=== PATIENT | male | born 1995 | race Caucasian/White ===

== ENCOUNTER 2016-11-05 12:17 | Inpatient (IN) | payer OTHER ==
[~2016-11-05] VITALS: Ht 180.3 cm; Wt 92.7 kg
[2016-11-05] VITALS (7 sets, daily range): BP systolic 104–126; BP diastolic 54–73; PULSE 52–77; TEMP 36.6–37.1; O2SAT 95–99; Ht 180.3 cm; Wt 92.7 kg
[2016-11-05] MEDS ORDERED: SODIUM CHLORIDE 0.9% 1000ML 1,000 ML IV STA (13:06)
[2016-11-05] MEDS ORDERED: MoRPHine SULFATE 4 MG/ML 1 ML CARP\\VIAL IV STA (13:06)
[2016-11-05] MEDS ORDERED: ONDANSETRON INJ 2 MG/ML 2 ML VIAL IV STA (13:06)
[2016-11-05 13:12] LABS: BASO % 0.2 %; BASO ABS # 0.02 K/uL (0-0.2); COMPLETE YES; HEMATOCRIT 43.1 % (42-52); IG% 0.3 %; LYMPH % 6.7 %; LYMPH ABS # 0.79 K/uL (1.2-3.4); MEAN CELL VOLUME 88.9 fL (80-100); MEAN CORPUSCULAR HEMOGLOBIN 30.5 pg (25-34); MEAN CORPUSCULAR HGB CONC 34.3 g/dl (32-36); MEAN PLATELET VOLUME 9.6 fL (7.4-10.4); MONO % 5.9 %; NEUT % 85.9 %; PLATELET COUNT 186 K/uL (130-400); RED BLOOD COUNT 4.85 M/uL (4.7-6.1); WHITE BLOOD COUNT 11.81 K/uL (4.8-10.8)
[2016-11-05] MEDS ORDERED: OPTIRAY 320 IV PRN (13:15)
[2016-11-05 13:20] LABS: BUN/CREATININE RATIO 13.5 (10-20); CALCIUM 9.1 mg/dl (8.5-10.1); CREATININE 1.2 mg/dl (0.60-1.40); POTASSIUM 4.2 mmol/L (3.5-5.1)
--- NOTE | 2016-11-05 14:05 | DIAGNOSTIC IMAGING REPORT ---
CT OF THE ABDOMEN AND PELVIS WITH CONTRAST CLINICAL HISTORY: Worsening right sided abdominal pain, nausea and vomiting. COMPARISON STUDY: None. TECHNIQUE: Following IV administration of 119 mL of Optiray-320, axial images of the abdomen and pelvis were obtained from the lung bases to the proximal femurs. Images were reviewed in the axial, sagittal, and coronal planes. IV contrast was administered without complication. CT DOSE: 506.19 mGy.cm FINDINGS: The liver, spleen, adrenal glands, kidneys and pancreas are normal. There is no evidence for a bowel obstruction. The appendix is dilated, measuring 1 cm in caliber. The wall is thickened and enhancing. There is moderate periappendiceal infiltration. No free air or abscess is identified. A small amount of nonloculated fluid within the pelvis is noted. No suspicious skeletal lesions are identified. There is old deformity of the lesser trochanter of the left femur and the left inferior pubic ramus. IMPRESSION: 1. Acute appendicitis. Moderate periappendiceal infiltration. Retrocecal appendix. No free air or abscess. 2. Small amount of fluid within the pelvis. Electronically signed by: Jorge Yanez M.D. 11/05/2016 2:03 PM Dictated Date/Time: 11/05/2016 2:01 PM
[2016-11-05] MEDS ORDERED: CEFOXITIN SOD 2 GM VIAL IV STA ×2 (14:38→14:54)
[2016-11-05] MEDS ORDERED: LACTATED RINGER'S 1000ML 1,000 ML IV SCH (15:00)
--- NOTE | 2016-11-05 15:02 | History & Physical Bridge Note ---
H&P Re-Evaluation Bridge Note: I have examined the patient, reviewed the History & Physical and in the interval since the performance of the History & Physical I have noted the following changes of clinical significance: No changes noted h and p dictated confirmation number [id number] dx acute appendicitis proceed with lap appy possible open
--- NOTE | 2016-11-05 15:11 | HISTORY & PHYSICAL EXAMINATION ---
DATE OF ADMISSION: 11/05/2016 Seen in the Emergency Room at 2:50 on 11/05/2016. SUMMARY: This is a 21-year-old gentleman that I was called by Dr. Mooney just approximately a half hour ago with findings of acute appendicitis. He said the pain started early this morning woke up with his lower abdominal pain was nauseated and the pain progressed to the point that it was fixed in right lower quadrant. He has never had pain like this before. He does state that both his parents had appendix out, and in fact I spoke with both the mother and father after examining him. PAST MEDICAL HISTORY: Pretty much unremarkable. 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 ALLERGIES: He has no known allergies. PAST SURGICAL HISTORY: He denies any previous surgery. REVIEW OF SYSTEMS: A 10 has been reviewed and completely unremarkable. PHYSICAL EXAMINATION: GENERAL: As I see him at this time showed the gentleman in no acute distress. He has a heavy [place]. VITAL SIGNS: His temperature is 36.7, his pulse is 56, respirations 16, blood pressure 133/44, O2 sats 99% on room air. HEENT: The head is normocephalic. Eyes: PERRLA. The sclerae is nonicteric. NECK: No cervical lymphadenopathy. Heart: Normal. LUNGS: Clear. ABDOMEN: Has significant tenderness and rebound in right lower quadrant. LABORATORY STUDIES: He has a white count of 11.81 with a left shift. Chemistries are acceptable. His creatinine is slightly elevated at 1.2. IMAGING: By CAT scan is compatible with a retrocecal acute appendicitis with moderate periappendiceal infiltration. ASSESSMENT AND PLAN: At this point, we will proceed with laparoscopic appendectomy, possible open. Risks and complications were explained including bleeding, infection, conversion to an open procedure and he would like to proceed accordingly. ADRIAN
--- NOTE | 2016-11-05 15:13 | EMERGENCY ROOM VISIT NOTE ---
History Report prepared by Negar: Sheree Marcano Under the Supervision of: Dr. Rosario Mooney M.D. First contact with patient: 12:29 Chief Complaint: ABDOMINAL PAIN Stated Complaint: ABD PAIN, NAUSEA, VOMITING, FEVER Nursing Triage Summary: last hoa morris stomach upset worse today pain mid abd History of Present Illness The patient is a 21 year old male who presents to the Emergency Room with complaints of worsening abdominal pain starting 0700 this morning. He woke up with severe pain in his upper abdomen. He took Pepto Bismol to no relief. The pain has been gradually worsening and concentrated more on the right side. He reports nausea, vomiting, and diarrhea. He has vomited 3 times. He denies any bloody stools or fever. He has no history of abdominal surgery or other medical problems. He denies eating any new foods last night. Source of History: patient Onset: 0700 this morning Position: abdomen Symptom Intensity: severe Quality: other (pain) Timing: worsening Associated Symptoms: + diarrhea, + nausea, + vomiting, No fevers, No hematochezia Review of Systems See HPI for pertinent positives & negatives. A total of 10 systems reviewed and were otherwise negative. Past Medical & Surgical Medical Problems: (1) No Known Active Medical Problems Family History No pertinent family history stated. Social History Smoking Status: Current Some Day Smoker Marital Status: single Occupation Status: [employer] student Current/Historical Medications Scheduled PRN Oxycodone/Acetaminophen 5MG/325MG (Percocet 5MG/325MG), 1-2 TABLETS PO Q4H PRN for Pain Allergies Coded Allergies: No Known Allergies (Unverified , 11/05/16) Physical Exam Vital Signs Date Time Temp Pulse Resp B/P Pulse Ox O2 Delivery O2 Flow Rate FiO2 11/05/16 15:34 64 16 130/50 99 11/05/16 15:30 36.7 56 16 135/44 99 Room Air 11/05/16 15:00 99 Room Air 11/05/16 13:56 56 16 135/44 99 Room Air 11/05/16 12:19 36.7 76 20 124/70 97 Room Air Physical Exam Vital signs reviewed. General: Well-appearing, in no significant distress. HEENT: No scleral icterus, PERRLA, neck supple. Atraumatic. Cardiovascular: Regular rate and rhythm, no extra sounds. Pulmonary: Clear to auscultation bilaterally, normal work of breathing. Abdomen: Soft, tenderness to palpation of the RLQ, some guarding, no rebound, nondistended, positive bowel sounds. Musculoskeletal: Atraumatic, no peripheral edema. Neurologic: Patient awake alert and oriented x 3, full strength in all 4 extremities. Cranial nerves 2 through 12 grossly intact. Skin: Warm, dry, no rash Medical Decision & Procedures ER Provider Diagnostic Interpretation: Radiology results as stated below per my review and radiologist interpretation: CT OF THE ABDOMEN AND PELVIS WITH CONTRAST CLINICAL HISTORY: Worsening right sided abdominal pain, nausea and vomiting. COMPARISON STUDY: None. TECHNIQUE: Following IV administration of 119 mL of Optiray-320, axial images of the abdomen and pelvis were obtained from the lung bases to the proximal femurs. Images were reviewed in the axial, sagittal, and coronal planes. IV contrast was administered without complication. CT DOSE: 506.19 mGy.cm FINDINGS: The liver, spleen, adrenal glands, kidneys and pancreas are normal. There is no evidence for a bowel obstruction. The appendix is dilated, measuring 1 cm in caliber. The wall is thickened and enhancing. There is moderate periappendiceal infiltration. No free air or abscess is identified. A small amount of nonloculated fluid within the pelvis is noted. No suspicious skeletal lesions are identified. There is old deformity of the lesser trochanter of the left femur and the left inferior pubic ramus. IMPRESSION: 1. Acute appendicitis. Moderate periappendiceal infiltration. Retrocecal appendix. No free air or abscess. 2. Small amount of fluid within the pelvis. Electronically signed by: Jorge Yanez M.D. 11/05/2016 2:03 PM Dictated Date/Time: 11/05/2016 2:01 PM Laboratory Results 11/05/16 12:35 Red Blood Count 4.85, Mean Corpuscular Volume 88.9, Mean Corpuscular Hemoglobin 30.5, Mean Corpuscular Hemoglobin Concent 34.3, Mean Platelet Volume 9.6, Neutrophils (%) (Auto) 85.9, Lymphocytes (%) (Auto) 6.7, Monocytes (%) (Auto) 5.9, Eosinophils (%) (Auto) 1.0, Basophils (%) (Auto) 0.2, Neutrophils # (Auto) 10.15, Lymphocytes # (Auto) 0.79, Monocytes # (Auto) 0.70, Eosinophils # (Auto) 0.12, Basophils # (Auto) 0.02 11/05/16 12:35 Test 11/05/16 12:35 White Blood Count 11.81 K/uL (4.8-10.8) Red Blood Count 4.85 M/uL (4.7-6.1) Hemoglobin 14.8 g/dL (14.0-18.0) Hematocrit 43.1 % (42-52) Mean Corpuscular Volume 88.9 fL (80-100) Mean Corpuscular Hemoglobin 30.5 pg (25-34) Mean Corpuscular Hemoglobin Concent 34.3 g/dl (32-36) Platelet Count 186 K/uL (130-400) Mean Platelet Volume 9.6 fL (7.4-10.4) Neutrophils (%) (Auto) 85.9 % Lymphocytes (%) (Auto) 6.7 % Monocytes (%) (Auto) 5.9 % Eosinophils (%) (Auto) 1.0 % Basophils (%) (Auto) 0.2 % Neutrophils # (Auto) 10.15 K/uL (1.4-6.5) Lymphocytes # (Auto) 0.79 K/uL (1.2-3.4) Monocytes # (Auto) 0.70 K/uL (0.11-0.59) Eosinophils # (Auto) 0.12 K/uL (0-0.5) Basophils # (Auto) 0.02 K/uL (0-0.2) RDW Standard Deviation 42.9 fL (36.4-46.3) RDW Coefficient of Variation 13.1 % (11.5-14.5) Immature Granulocyte % (Auto) 0.3 % Immature Granulocyte # (Auto) 0.03 K/uL (0.00-0.02) Anion Gap 10.0 mmol/L (3-11) Est Creatinine Clear Calc Drug Dose 114.2 ml/min Estimated GFR () 100.3 Estimated GFR (Non- 86.5 BUN/Creatinine Ratio 13.5 (10-20) Calcium Level 9.1 mg/dl (8.5-10.1) Total Bilirubin 0.7 mg/dl (0.2-1) Direct Bilirubin 0.2 mg/dl (0-0.2) Aspartate Amino Transf (AST/SGOT) 41 U/L (15-37) Alanine Aminotransferase (ALT/SGPT) 50 U/L (12-78) Alkaline Phosphatase 71 U/L (45-117) Total Protein 7.8 gm/dl (6.4-8.2) Albumin 4.4 gm/dl (3.4-5.0) Lipase 116 U/L (73-393) Laboratory results per my review. Medications Administered Medications (Trade) Dose Ordered Sig/Joe Route Start Time Stop Time Status Last Admin Dose Admin Morphine Sulfate (MoRPHine SULFATE INJ) 4 mg NOW STAT IV 11/05/16 13:06 11/05/16 13:07 DC 11/05/16 13:11 4 MG Ondansetron HCl 4 mg 4 mg NOW STAT IV 11/05/16 13:06 11/05/16 13:07 DC 11/05/16 13:11 4 MG Sodium Chloride (Nss 1000ml) 1,000 ml @ 999 mls/hr Q1H1M STAT IV 11/05/16 13:06 11/05/16 14:06 DC 11/05/16 13:11 999 MLS/HR Cefoxitin Sodium 2000 mg 2,000 mg NOW STAT IV 11/05/16 14:38 11/05/16 14:39 DC 11/05/16 14:45 2,000 MG Lactated Ringer's (Lr 1000ml) 1,000 ml @ 125 mls/hr Q8H IV 11/05/16 15:00 11/05/16 17:15 DC 11/05/16 15:00 125 MLS/HR Lidocaine/ Epinephrine 8 ml 8 ml ONE ONCE INJ 11/05/16 16:53 11/05/16 16:54 DC 11/05/16 16:53 8 ML Lactated Ringer's (Lr 1000ml) 1,000 ml @ 100 mls/hr Q10H IV 11/05/16 17:00 11/06/16 13:46 DC 11/06/16 02:15 100 MLS/HR Hydromorphone HCl (Dilaudid Inj) 1 mg Q2H PRN IV 11/05/16 17:00 11/06/16 13:46 DC 11/05/16 18:17 1 MG Oxycodone/ Acetaminophen (Percocet 5-325mg Tab) 1 tab Q4H PRN PO 11/05/16 17:00 11/06/16 13:46 DC 11/06/16 13:44 1 TAB ED Course 1254: Past medical records reviewed. The patient was evaluated in room B12. A complete history and physical examination was performed. 1306: NSS 1000 ml @ 999 mls/hr IV, Zofran Inj 4 mg IV, Morphine Sulfate 4 mg IV. 1418: I discussed the patient's case with Dr. Dykes, [facility] [place]. He will be in to see the patient. 1438: Mefoxin IV 2000 mg IV. 1439: Upon reevaluation, the patient is resting comfortably. I discussed laboratory and radiographic results with him. He verbalized agreement of the treatment plan. The patient will be evaluated for further management and care. Medical Decision Differential diagnosis: Etiologies such as appendicitis, diverticulitis, PUD, biliary pathology, UTI, pancreatitis, obstruction, mesenteric ischemia, aortic pathology, infections, inflammatory bowel disease, renal colic, as well as others were entertained. This patient was evaluated and appeared to be in no significant distress. IV access was obtained and laboratory work was drawn. CT scan abdomen and pelvis was performed and is indicative of an acute appendicitis. The patient was discussed with Dr. Dykes of general surgery. He was ordered 2 g of Mefoxin manager oncology the OR. Patient is aware of the plan and agrees. Consults Time Called: 1415 Consulting Physician: Dr. Dykes, [facility] [place] Returned Call: [phone] I discussed the patient's case with him. He will be in to see the patient. Impression Primary Impression: Appendicitis Scribe Attestation The scribe's documentation has been prepared under my direction and personally reviewed by me in its entirety. I confirm that the note above accurately reflects all work, treatment, procedures, and medical decision making performed by me. Departure Information Dispostion Being Evaluated By Surgeon Prescriptions Oxycodone/Acetaminophen 5MG/325MG (PERCOCET 5MG/325MG) Tab 1-2 TABLETS PO Q4H Y for Pain, #20 TAB Prov: Everardo Trivedi JR.,MINDI 11/06/16 Referrals No Doctor, Assigned (PCP) Patient Instructions [facility]
[2016-11-05] MEDS ORDERED: FENTANYL CITRATE INJ 50 MCG/1 ML 2 ML VIAL ONE (15:21)
[2016-11-05] MEDS ORDERED: MIDAZOLAM HCL 1 MG/ML 2ML VIAL ONE (15:23)
[2016-11-05] MEDS ORDERED: PROPOFOL IV EMULSION 10 MG/ML 20 ML VIAL IV ONE (15:24)
[2016-11-05] MEDS ORDERED: SUCCINYLCHOLINE CHLORIDE 20 MG/ML 10 ML VIAL IV ONE (15:25)
[2016-11-05] MEDS ORDERED: CISATRACURIUM BESYLATE IV SOLN 2 MG/ML 10 ML VIAL ONE (16:29)
[2016-11-05] MEDS ORDERED: ONDANSETRON INJ 2 MG/ML 2 ML VIAL ONE (16:30)
[2016-11-05] MEDS ORDERED: DEXAMETHASONE SOD INJ 4 MG/ML VIAL ONE (16:30)
[2016-11-05] MEDS ORDERED: LIDOCAINE 1% W/EPI 1:100,000 INJ ONE (16:53)
[2016-11-05] MEDS ORDERED: GLYCOPYRROLATE INJ 0.2 MG/ML VIAL ONE (16:54)
[2016-11-05] MEDS ORDERED: NEOSTIGMINE METHYLSULFATE 5 MG/5 ML SYR ONE (16:55)
--- NOTE | 2016-11-05 16:58 | [facility] Post Operative Brief Note ---
Immediate Operative Summary Operative Date Nov 05, 2016. Pre-Operative Diagnosis Acute Appendicitis Post-Operative Diagnosis same Procedure(s) Performed Laparoscopic Appendectomy Surgeon Dr. Dykes Felt Pad Cutter Surgeon(s) none Estimated Blood Loss 3 ML Findings acute non ruptured retrocecal appendicitis Specimens A. Appendix
[2016-11-05] MEDS ORDERED: ONDANSETRON INJ 2 MG/ML 2 ML VIAL IV PRN ×2 (17:00→17:15)
[2016-11-05] MEDS ORDERED: HYDROmorphone INJ 1 MG/ML SYR IV PRN (17:00)
[2016-11-05] MEDS ORDERED: MEPERIDINE HCL 50 MG/ML CARP ONE (17:06)
[2016-11-05] MEDS ORDERED: HYDROmorphone INJ 2 MG/ML SYR/VIAL ONE (17:14)
[2016-11-05] MEDS ORDERED: PROMETHAZINE HCL INJ 12.5 MG in SODIUM CHLORIDE 0.9% 50ML 50 ML IV PRN (17:15)
[2016-11-05] MEDS: HYDROmorphone INJ 1 MG/ML SYR IV PRN ×4 (17:15→17:30)
[2016-11-05] MEDS ORDERED: FLUMAZENIL 0.1 MG/1 ML 10 ML VIAL IV PRN (17:15)
[2016-11-05] MEDS ORDERED: NALOXONE HCL 0.4 MG/1 ML VIAL/CARP IV PRN (17:15)
[2016-11-05] MEDS ORDERED: ATROPINE SULFATE 0.1 MG/ML 5ML SYR IV PRN (17:15)
[2016-11-05] MEDS ORDERED: MEPERIDINE HCL 25 MG/ML CARP IV PRN (17:15)
[2016-11-05] MEDS ORDERED: EpHEDrine SULFATE INJ 50 MG/ML AMP IV PRN (17:15)
[2016-11-05] MEDS: LACTATED RINGER'S 1000ML 1,000 ML IV SCH (18:17)
--- NOTE | 2016-11-05 18:30 | Anesthesiology Progress Note ---
Anesthesia Post Op Note Date & Time Nov 05, 2016 at 18:30 Vital Signs Pain Intensity: 5.0 Vital Signs Past 12 Hours Date Time Temp Pulse Resp B/P Pulse Ox O2 Delivery O2 Flow Rate FiO2 11/05/16 17:45 36.8 59 16 159/64 99 Nasal Cannula 2 11/05/16 17:35 58 16 153/69 99 Nasal Cannula 2 11/05/16 17:25 58 16 154/62 99 Nasal Cannula 2 11/05/16 17:15 62 16 149/76 100 Nasal Cannula 2 11/05/16 17:05 36.7 65 16 179/74 99 Nasal Cannula 2 11/05/16 15:34 64 16 130/50 99 11/05/16 15:30 36.7 56 16 135/44 99 Room Air 11/05/16 15:00 99 Room Air 11/05/16 13:56 56 16 135/44 99 Room Air 11/05/16 12:19 36.7 76 20 124/70 97 Room Air Notes Mental Status: alert / awake / arousable, participated in evaluation Pt Amnestic to Procedure: Yes Nausea / Vomiting: adequately controlled Pain: adequately controlled Airway Patency, RR, SpO2: stable & adequate BP & HR: stable & adequate Hydration State: stable & adequate Anesthetic Complications: no major complications apparent
--- NOTE | 2016-11-05 18:47 | OPERATIVE REPORT ---
DATE OF OPERATION: 11/05/2016 SURGEON: Dr. Dykes. PREOPERATIVE DIAGNOSIS: Acute appendicitis. POSTOPERATIVE DIAGNOSIS: Acute retrocecal appendicitis, non-ruptured. PROCEDURE: Laparoscopic appendectomy. SUMMARY: The patient was brought into the operating room theater. The abdomen was prepped with Betadine solution and scrubbed properly, draped. We made a small transverse incision above the umbilicus sufficient enough to place a Veress needle followed by a 5 mm trocar. Point of entry inspected and no injury identified. Under direct visualization, we looked at the right lower quadrant but could not see the appendix. Therefore, we placed a 5 mm right upper quadrant port with preemptive local analgesia 1% Xylocaine and using a grasper, we were able to see that the appendix appeared to be retrocecal. At this point I converted the 5 mm umbilical trocar to a 11 mm and placed a 5 mm left lower quadrant and camera in the left lower quadrant. I was able to elevate the appendix, I got to its base where we created a window between that and the cecum and then fired a stapler of the purple load TAMARA. We at this point then elevated the appendix which was acutely inflamed but not ruptured, had some fibrinous exudate over it and dissected out the retroperitoneal fine tissue that was adherent to the appendix retrocecally. There was a lot of edema in that area, but we were able mostly do blunt dissection. We elevated the appendix off and we were able to get to the mesoappendix where at this point once elevated, I was able to place another load of the purple TAMARA and completely divide the mesentery. The area was checked for hemostasis and appeared satisfactory. There was no bleeding and the staple line that we had fired at the base of the appendix there was no residual appendiceal tissue, we were right on the cecum. The appendix was then placed in an Endopouch and taken out through the epigastric port. The area was then suctioned out copiously, placed the patient in a reverse Trendelenburg and at this point, under direct visualization, suctioned out the area, we then taken the individual trocars out looking at the entry site with no injury identified. A #0 PDS was used in a [id number] for the umbilical fascial tissue, the other ones were Monocryl. Steri-Strips applied. The procedure was tolerated well by the patient. Minimal blood loss approximately 3 mL. The patient was taken to the recovery room in good condition. I attest to the content of the Intraoperative Record and any orders documented therein. Any exceptio ns are noted below.
[2016-11-05] MEDS: OXYCODONE/ACETAMINOPHEN 5-325 TAB PO PRN (20:24)
[2016-11-05] MEDS: CEFOXITIN IV 2,000 MG in DEXTROSE 5% 50ML 50 ML IV SCH (20:26)
[2016-11-06] MEDS: LACTATED RINGER'S 1000ML 1,000 ML IV SCH ×2 (02:15→13:00)
[2016-11-06] MEDS: CEFOXITIN IV 2,000 MG in DEXTROSE 5% 50ML 50 ML IV SCH (02:15)
[2016-11-06 02:53] VITALS: BP 104/52; PULSE 63; TEMP 36.9; O2SAT 96
[2016-11-06] MEDS: OXYCODONE/ACETAMINOPHEN 5-325 TAB PO PRN ×2 (07:05→13:44)
[2016-11-06 07:11] VITALS: BP 112/58; PULSE 54; TEMP 36.8; O2SAT 97
[2016-11-06] MEDS ORDERED: OXYC-57 PO (08:08)
--- NOTE | 2016-11-06 08:11 | Discharge Instructions ---
Discharge Instructions Date of Service November 06, 2016. Admission Reason for Admission: Appendicitis Discharge Discharge Diagnosis / Problem: Appendectomy Discharge Goals Goal(s): Decrease discomfort Activity Recommendations Activity Limitations: as noted below Lifting Limitations: no more than 10 pounds Shower/Bathe: no limitations (ok to shower) Driving or Machine Use: resume 3 days after discharge (if not taking Percocet) . Instructions / Follow-Up Instructions / Follow-Up Dr. Dykes in 1-2 weeks, call [phone] to schedule, [facility], [address] [facility] Diet Patient's current hospital diet: Regular Diet Discharge Diet Recommended Diet: Regular Diet Procedures Procedures Performed: Laparoscopic Appendectomy Pending Studies Studies pending at discharge: no Medical Emergencies . Who to Call and When: Medical Emergencies: If at any time you feel your situation is an emergency, please call [phone] immediately. . Non-Emergent Contact Non-Emergency issues call your: Surgeon Call Non-Emergent contact if: you have a fever, temperature is above 101.5, your pain is not controlled, wound has increased drainage, wound has increased redness . "Provider Documentation" section prepared by Everardo Trivedi. . VTE Core Measure Inpt VTE Proph given/why not?: SCD's
--- NOTE | 2016-11-06 08:47 | SURGERY PROGRESS NOTE ---
DATE: 11/06/2016 Demetrius is postop laparoscopic appendectomy. He is alert, coherent, in no distress. Moves around quite easily. Last vitals showed a temperature of 36.8, pulse 51, respirations 16, blood pressure 112/58, O2 sat is 97 on room air. The abdomen is completely benign. The trocar sites are fine. Intraoperative findings were discussed with the patient. We will check him later on this morning, early afternoon, but I suspect the patient can be discharged and instructions will be given.
[2016-11-06 13:34] VITALS: BP 112/58; PULSE 54; TEMP 36.8; O2SAT 97
--- NOTE | 2016-11-07 15:23 | DISCHARGE SUMMARY ---
PRIMARY DISCHARGE DIAGNOSIS: Acute appendicitis. PROCEDURE PERFORMED: Laparoscopic appendectomy. HOSPITAL COURSE: The patient is a 21-year-old male who presented to the Emergency Department with a complaint of abdominal pain that began in the morning, progressing and nausea, vomiting and diarrhea. CT showed a 1 cm appendix consistent with acute appendicitis. His white count was 11,000 with a left shift. He was taken to the operating room that afternoon for his laparoscopic appendectomy. Procedure was well tolerated and he was transferred to the surgical floor for observation. The next morning, he was tolerating diet and oral analgesics. He was stable for discharge. Incisions were dry. DISCHARGE INSTRUCTIONS: Discharge home. Follow up with Dr. Dykes in 1 week. DISCHARGE MEDICATIONS: Percocet 1-2 tablets every 4 hours as needed.
== END 2016-11-06 13:46 | disposition home or self-care (01) | DRG 343 ==
LOC: ENRESERVDT → ENRESERVTM → C.EDB 12:17 → C.MSW 17:02
PROVIDERS: ADMIT Surgery; ATTEND Surgery
PROC: 0DTJ4ZZ Resection of Appendix, Percutaneous Endoscopic Approach (ICD-10-PCS; principal; 2016-11-05 15:13)
DX: K35.80 Unspecified acute appendicitis (principal); F17.210 Nicotine dependence, cigarettes, uncomplicated

== ENCOUNTER 2017-03-05 16:38 | Emergency (ER) | payer OTHER ==
[~2017-03-05] VITALS: Ht 177.8 cm; Wt 91.0 kg
[~2017-03-05 16:38] MED LIST: OXYC-57 PO
[2017-03-05 17:01] VITALS: TEMP 36.7; Ht 177.8 cm; Wt 91.0 kg
[2017-03-05 17:03] VITALS: O2SAT 96
[2017-03-05] MEDS ORDERED: SODIUM CHLORIDE 0.9% 1000ML 1,000 ML IV STA (17:33)
[2017-03-05] MEDS ORDERED: NITROGLYCERIN OINT 2% 1GM PACKET EXT STA (17:33)
[2017-03-05] MEDS ORDERED: DIAZEPAM INJ 5 MG/ML 2 ML CARP IV STA (17:33)
[2017-03-05] MEDS ORDERED: GLUCAGON INJ 1 MG in SYRINGE 0 ML IV STA (17:33)
[2017-03-05] MEDS ORDERED: METOCLOPRAMIDE HCL INJ 5 MG/ML 2 ML VIAL IV STA (17:33)
--- NOTE | 2017-03-05 17:42 | EMERGENCY ROOM VISIT NOTE ---
History Report prepared by Negar: Luis Durant Under the Supervision of: Dr. Ramses Evans M.D. First contact with patient: 17:33 Chief Complaint: FOOD BOLUS Stated Complaint: FOREIGN BODY STUCK IN THROAT Nursing Triage Summary: Choked while eating pork for lunch; vomited x 1; noticed something stuck in his throat since then; unable to swallow saliva or water; sent to the ED by the health center at [facility]. History of Present Illness The patient is a 21 year old male who presents to the Emergency Room with complaints of a food bolus that began 4 hours ago. At this time, the patient was eating a pork chop for lunch. He choked on a piece of pork, and then vomited. After he vomited, he noticed something was stuck in his throat making him unable to swallow. He has been unable to swallow water or saliva. He was sent here from [facility]. He denies any shortness of breath or any other symptoms. Source of History: patient Onset: 4 hours ago Position: throat Symptom Intensity: Unable to swallow Quality: other (Food bolus) Timing: constant Associated Symptoms: No SOB Note: He is unable to swallow his own saliva. He denies any other symptoms. Review of Systems See HPI for pertinent positives & negatives. A total of 10 systems reviewed and were otherwise negative. Past Medical & Surgical Medical Problems: (1) No Known Active Medical Problems Family History Patient reports no known family medical history. Social History Smoking Status: Never Smoker Smokeless Tobacco Use: No Alcohol Use: none Drug Use: none Marital Status: single Occupation Status: [employer] Current/Historical Medications Scheduled Famotidine (Pepcid), 40 MG PO HS Allergies Coded Allergies: No Known Allergies (Unverified , 03/05/17) Physical Exam Vital Signs Date Time Temp Pulse Resp B/P (MAP) Pulse Ox O2 Delivery O2 Flow Rate FiO2 03/05/17 18:43 77 16 132/59 99 03/05/17 18:15 126/77 03/05/17 18:09 92 03/05/17 18:01 91 16 125/87 98 03/05/17 17:51 96 16 147/76 95 03/05/17 17:03 96 Room Air 96 03/05/17 17:01 36.7 109 18 199/145 96 Room Air Physical Exam GENERAL: Patient is a healthy-appearing well-nourished male HEAD: Normocephalic atraumatic EYES: Ocular movements intact pupils equal and react to light OROPHARYNX mucous membranes are moist no exudates present no erythema or edema present NECK: Supple no nuchal rigidity CHEST: Good equal expansion LUNGS: Clear and equal to auscultation CARDIAC: Normal S1 and S2 ABDOMEN: Soft nontender no guarding BACK: No CVA tenderness EXTREMITIES: No pain upon palpation normal muscle strength in all groups no clubbing cyanosis or edema NEURO: Patient is following commands and answering questions appropriately. Alert and oriented x3 Cranial Nerves 2-12 grossly intact Medical Decision & Procedures ER Provider Diagnostic Interpretation: Radiology results as stated below per my review and radiologist interpretation: CHEST ONE VIEW PORTABLE CLINICAL HISTORY: Food bolus. COMPARISON STUDY: No previous studies for comparison. FINDINGS: Lung volumes are normal. Lungs are clear. No pneumothorax or pleural effusion is present. Pulmonary vascularity is normal. Cardiomediastinal silhouette is normal. No radiopaque foreign bodies are identified. There is no radiographic evidence of pneumomediastinum. IMPRESSION: No acute cardiopulmonary findings. Electronically signed by: Jorge Yanez M.D. 03/05/2017 5:56 PM Dictated Date/Time: 03/05/2017 5:55 PM Medications Administered Medications (Trade) Dose Ordered Sig/Joe Route Start Time Stop Time Status Last Admin Dose Admin Sodium Chloride 1,000 ml @ 999 mls/hr Q1H1M STAT IV 03/05/17 17:33 03/05/17 18:33 DC 03/05/17 17:59 999 MLS/HR Metoclopramide HCl (Reglan Inj) 10 mg NOW STAT IV 03/05/17 17:33 03/05/17 17:35 DC 03/05/17 18:00 10 MG Diazepam (Valium Inj) 5 mg NOW STAT IV 03/05/17 17:33 03/05/17 17:35 DC 03/05/17 17:54 5 MG Glucagon 1 mg/ Syringe 1 ml @ 0.333 mls/ min NOW STAT IV 03/05/17 17:33 03/05/17 17:56 DC 03/05/17 18:19 0.333 MLS/MIN Nitroglycerin (Nitroglycerin 2% Oint) 1 inch NOW STAT EXT 03/05/17 17:33 03/05/17 17:35 DC 03/05/17 17:53 1 INCH ED Course 1733: Past medical records reviewed. The patient was evaluated in room C8. A complete history and physical examination was performed. Ordered Nitroglycerin 1 inch EXT, Glucagon 1 mg/ Syringe 1 ml @ 0.333 mls/min IV, Valium Inj 5 mg IV, Reglan Inj 10 mg IV, Sodium Chloride 1000 ml @ 999 mls/hr IV 1747: Ordered Nitroglycerin 1 inch .ROUTE 1828: The patient is able to swallow his own saliva at this time. He is drinking water. I offered to call his parents and discuss his case, but he declined. 1840: Upon reexamination the patient is resting. I discussed results and treatment plan with the patient. He verbalizes agreement and understanding. The patient is ready for discharge. Medical Decision This is a 21-year-old male who presents emergency department unable to swallow his own saliva. An IV was established, the patient was given glucagon, Nitropaste, Valium. He was also given 10 mg of Reglan. Repeat examination revealed the patient able swallow his own saliva and was able to drink water in the emergency department. He denies any pain. He has a soft abdomen on examination that is nontender. I believe based on these findings at the patient can be safely discharged home for follow-up with gastroenterology. I also offered to call this patient's parents however he refused. Patient was in agreement with the treatment plan. Medication Reconcilliation Current Medication List: was personally reviewed by me Blood Pressure Screening Patient's blood pressure: Elevated blood pressure Blood pressure disposition: Elevated BP felt to be situational Impression Primary Impression: Food impaction of esophagus Scribe Attestation The scribe's documentation has been prepared under my direction and personally reviewed by me in its entirety. I confirm that the note above accurately reflects all work, treatment, procedures, and medical decision making performed by me. Departure Information Dispostion Home / Self-Care Prescriptions Famotidine (Pepcid) 40 Mg Tab 40 MG PO HS for 30 Days, #30 TAB Prov: Ramses Evans MD 03/05/17 Referrals No Doctor, Assigned (PCP) Leroy Muhammad MD Forms HOME CARE DOCUMENTATION FORM, IMPORTANT VISIT INFORMATION, WORK / SCHOOL INSTRUCTIONS Patient Instructions Dysphagia, My [facility] [employer] Additional Instructions Clear liquid diet next 48 hours Take 5 ml Maalox before every meal and at bedtime Follow up with DR Muhammad's office You received narcotic or benzodiazepene medication while in the emergency room today. This is an addictive medication that may cause drowziness as well as constipation. Do not drive, operate heavy machinery, or drink alcohol under the influence of this medication. You have been examined and treated today on an emergency basis only. This is not a substitute for, or an effort to provide, complete comprehensive medical care. It is impossible to recognize and treat all injuries or illnesses in a single emergency department visit. It is therefore important that you follow up closely with [facility] as soon as possible for an appointment. Thank you for your time and consideration. I look forward to speaking with you again soon. Please don't hesitate to call us if you have any questions. Problem Qualifiers Primary Impression: Food impaction of esophagus Encounter type: initial encounter Qualified Codes: T18.128A - Food in esophagus causing other injury, initial encounter
[2017-03-05] MEDS ORDERED: NITROGLYCERIN OINT 2% 1GM PACKET ONE (17:47)
--- NOTE | 2017-03-05 17:57 | DIAGNOSTIC IMAGING REPORT ---
CHEST ONE VIEW PORTABLE CLINICAL HISTORY: Food bolus. COMPARISON STUDY: No previous studies for comparison. FINDINGS: Lung volumes are normal. Lungs are clear. No pneumothorax or pleural effusion is present. Pulmonary vascularity is normal. Cardiomediastinal silhouette is normal. No radiopaque foreign bodies are identified. There is no radiographic evidence of pneumomediastinum. IMPRESSION: No acute cardiopulmonary findings. Electronically signed by: Jorge Yanez M.D. 03/05/2017 5:56 PM Dictated Date/Time: 03/05/2017 5:55 PM
[2017-03-05] MEDS ORDERED: FAMO40TA6 PO (18:31)
[2017-03-05 18:43] VITALS: BP 132/59; PULSE 77; O2SAT 99
== END 2017-03-05 18:46 | disposition home or self-care (01) ==
LOC: C.EDB 16:38 → C.EDD 18:46
DX: T18.128A Food in esophagus causing other injury, initial encounter (principal); X58.XXXA Exposure to other specified factors, initial encounter